=== PATIENT | female | born 1965 | race Caucasian/White ===

== ENCOUNTER 2023-11-12 17:00 | Emergency (ER) | payer OTHER, SELFPAY ==
[2023-11-12 17:20] VITALS: BP 136/71; PULSE 100; RESP 18; TEMP 37.4; O2SAT 100
--- NOTE | 2023-11-12 17:32 | ED.URI ---
HPI - URI/Sore Throat General Chief Complaint: Upper Respiratory Infection Stated Complaint: Bodyache Time Seen by Provider: 11/12/23 17:33 History of Present Illness HPI Narrative: 58-year-old female presented for complaint of sore throat, left ear pain, and body aches. Onset yesterday. Take Sudafed yesterday. Denies known sick contacts but works in a school. Denies shortness of breath, wheezing, nausea vomiting, diarrhea or lethargy. Related Data Home Medications Medication Instructions Recorded Confirmed omeprazole magnesium 20 mg 20 mg PO DAILY 09/10/19 11/12/23 tablet,delayed release (Prilosec OTC) aspirin 81 mg chewable tablet 81 mg PO DAILY 11/12/23 11/12/23 Allergies Allergy/AdvReac Type Severity Reaction Status Date / Time prednisone Allergy Unknown ALLERGIC Verified 11/12/23 17:27 TO CORTICOSTEROIDS CORTICOSTEROIDS Allergy Mild Hives Uncoded 11/12/23 17:27 Review of Systems Review of Systems: CONSTITUTIONAL: Denies body aches, fever, chills, or sweats. EYES: Denies visual changes, redness, or discharge. ENT: Denies rhinorrhea, congestion, reports sore throat, otalgia. CARDIOVASCULAR: Denies chest pain, palpitations, or edema. RESPIRATORY: Denies dyspnea. GASTROINTESTINAL: Denies abdominal pain, nausea, vomiting, or diarrhea. SKIN: Denies rash, itching, or wounds. MUSCULOSKELETAL: Denies back pain, joint pain, reports myalgia. NEUROLOGIC: Denies headache PMFSH Past Medical History Medical History Abnormal fasting glucose (05/14/22) fasting glucose 100 on 05/14/2022 Acute bronchitis Acute non-recurrent maxillary sinusitis Acute recurrent maxillary sinusitis Body mass index (BMI) 45.0-49.9, adult (07/29/19) Bone lesion (10/19/21) 2.5 cm intermediate sclerotic bone lesion right humerus on x-ray 10/19/2021. CT of the right humerus without contrast on 11/11/2021 revealed a lucent 2.5 cm lesion in the proximal humerus likely benign with need for bone scan for further evaluation. Bone scan on 11/24/2021 was negative. Breast cancer screening by mammogram Normal mammogram 05/14/2022 with recheck in 1 year. Chronic anxiety Chronic depression Chronic low back pain with right-sided sciatica Chronic right hip pain Diarrhea (~09/13/22) Influenza-like symptoms Irritable bowel syndrome with diarrhea Moderate episode of recurrent major depressive disorder Morbid obesity with BMI of 40.0-44.9, adult Myalgia Total CK slightly elevated at 238 with aldolase normal at 5.3, magnesium 2.1 on 05/14/2022. Nausea and vomiting Pain of right breast Diagnostic mammogram and breast ultrasound 05/14/2022 was normal with recheck in 1 year. Pharyngitis Polyp of colon colonoscopy 04/07/[address] Hai carroll. Follow-up in 5 years for history of colon polyps. Right calf pain (~02/08/22) venous Doppler study right lower extremity 02/14/2022 was negative for DVT. Right shoulder pain (~09/2021) moderate osteoarthritis of the glenohumeral joint with an intermediate 2.5 cm sclerotic lesion of the humerus favor bone island . 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 Mild bursitis. Right-sided thoracic back pain Umbilical hernia without obstruction and without gangrene UTI (urinary tract infection) Vitamin B12 deficiency Level low at 313 with goal greater than 400 with hemoglobin 14.0 on 05/14/2022. Family History Family History Mother Diabetes mellitus, Onset Age: 3 Grandparent Diabetes mellitus, Onset Age: 78 Family history of cardiovascular disease, Onset Age: 73 Father Patient's father is , Onset Age: 50 Family history of cardiovascular disease Social History Social History Smoking status: Never smoker Alcohol intake: current
== END 2023-11-12 17:50 | disposition home or self-care (01) ==
PROVIDERS: Emergency Provider Nurse Practitioner Family; PCP Family Medicine
DX: B34.9 Viral infection, unspecified (principal); Z79.82 Long term (current) use of aspirin; Z20.822 Contact with and (suspected) exposure to COVID-19
CPT/HCPCS: 87081; 87426; 87804; 87880; 99213; G0463